=== PATIENT | male | born 1995 | race Caucasian/White ===

== ENCOUNTER 2023-10-15 15:06 | Emergency (ER) | payer BC, OTHER ==
[~2023-10-15] VITALS: Ht 172.7 cm; Wt 104.3 kg
[2023-10-15 15:06] VITALS: BP_SYST 164; PULSE 119; RESP 19; TEMP 98.7; O2SAT 94
[2023-10-15] MEDS ORDERED: IPRATROPIUM/ALBUTEROL SULFATE 3 ML AMPUL.NEB (DUONEB) INH ONE (15:30)
[2023-10-15] MEDS ORDERED: predniSONE 20 MG TABLET PO ONE (15:30)
[2023-10-15 15:39] VITALS: O2SAT 96
[2023-10-15 16:05] LABS: INFLUENZA TYPE A Negative (NEGATIVE); INFLUENZA TYPE B NEGATIVE (NEGATIVE)
[2023-10-15] MEDS ORDERED: METH-776 PO (16:15)
[2023-10-15] MEDS ORDERED: ALBMDI INH (16:15)
[2023-10-15 16:20] VITALS: PULSE 98; RESP 18; O2SAT 99
== END 2023-10-15 16:20 | disposition home or self-care (01) ==
LOC: SED 15:06
DX: J45.909 Unspecified asthma, uncomplicated (principal); R05.9 Cough, unspecified; R06.02 Shortness of breath; Z79.899 Other long term (current) drug therapy; Z20.822 Contact with and (suspected) exposure to COVID-19
CPT/HCPCS: 99283; 87426; 36415; 94664; 94760; 87804 ×2; J7512